=== PATIENT | male | born 1955 | race African-American/Black ===

== ENCOUNTER 2019-09-07 16:48 | Emergency (ER) | payer SELFPAY ==
[2019-09-07 17:28] LABS: ABSOLUTE EOSINOPHILS # (AUTO) 0.4 10^3/uL (0.0-0.6); ABSOLUTE LYMPHOCYTES (AUTO) 1.3 10^3/uL (0.5-4.7); ABSOLUTE MONOCYTES (AUTO) 0.5 10^3/uL (0.1-1.4); ABSOLUTE NEUT (AUTO) 2.8 10^3/uL (1.7-8.2); BASOPHILS % (AUTO) 0.6 % (0-2); EOSINOPHILS % (AUTO) 8.6 % (0-6); HEMATOCRIT 41.7 % (37.9-51.0); HEMOGLOBIN 14.2 g/dL (13.5-17.0); LYMPHOCYTES % (AUTO) 25.3 % (13-45); MEAN CORPUSCULAR HEMOGLOBIN 32.8 pg (27.0-33.4); MEAN CORPUSCULAR VOLUME 97 fl (80-97); MONOCYTES % (AUTO) 9.4 % (3-13); PLATELET COUNT 203 10^3/uL (150-450); RED BLOOD COUNT 4.32 10^6/uL (4.35-5.55); RED CELL DISTRIBUTION WIDTH 14.6 % (11.5-14.0); SEGMENTED NEUTROPHILS % (AUTO) 56.1 % (42-78); TOTAL CELLS COUNTED % (AUTO) 100 %
[2019-09-07] MEDS ORDERED: ASPIRIN 81 MG TABLET, CHEWABLE PO ONE (17:42)
--- NOTE | 2019-09-07 17:46 | ER Document Report ---
ED General - General Chief Complaint: Chest Pain Stated Complaint: CHEST PAIN Time Seen by Provider: 09/07/19 17:29 TRAVEL OUTSIDE OF THE [place] IN LAST 30 DAYS: No - HPI Notes: Patient is a very pleasant 59-year-old male who presents to the emergency department for evaluation of chest pain. He states is been intermittent over the last 3 weeks. He really cannot describe it for me in great detail. He s tates that it feels like a knot. He states he has had a nearly daily for the last 3 weeks. It seems to last 30 seconds to 2 or 3 minutes. He states he had one episode when he got up in the middle the night. He states he had another episode while he was drinking, and he felt like he was choking. He denies any radiation of this pain, he points to the substernal area. He denies any associated shortness of breath, nausea, diaphoresis, near syncope. - Related Data Allergies/Adverse Reactions: No Known Allergies Allergy (Unverified 04/01/15 10:44) Home Medications: Unknown [id number] allergy medication Past Medical History - General Information source: Patient - Social History Smoking Status: Current Every Day Smoker Frequency of alcohol use: Occasional Drug Abuse: None Family History: Reviewed & Not Pertinent, CAD, Other - Brain aneurysm in sister Patient has suicidal ideation: No Patient has homicidal ideation: No Review of Systems - Review of Systems Constitutional: No symptoms reported EENT: No symptoms reported Cardiovascular: See HPI Respiratory: No symptoms reported Gastrointestinal: No symptoms reported Genitourinary: No symptoms reported Musculoskeletal: No symptoms reported Neurological/Psychological: No symptoms reported Physical Exam - Vital signs Vitals: Resp Pulse Ox 20 98 09/07/19 17:06 09/07/19 17:06 - Notes Notes: Vital signs reviewed, please refer to chart. Head is normocephalic, atraumatic. Pupils equal round, reactive to light. Neck is supple without meningismus. Heart is regular rate and rhythm. Lungs are clear to auscultation bilaterally. Abdomen is soft, nontender, normoactive bowel sounds throughout. Extremities without cyanosis, clubbing. Posterior calves are nontender. Peripheral pulses are equal. Skin is warm and dry. Patient is awake, alert, oriented x3. Cranial nerves II - XII are grossly intact without focal neurological deficits. Strength is plus 5 out of 5 bilateral upper and lower extremities. Sensation is intact. Reflexes symmetrical. Intact [id number], rapid alternating movements, [id number]. Course - Re-evaluation Re-evalutation: 09/07/19 17:48 Patient presents emergency department for evaluation of chest pain. It certainly does not seem typical of anginal pain. I am concerned as the patient is moderately hypertensive, and he does not have a regular primary care. He is given aspirin. His symptoms certainly sound as if they may be GI related as well. In regards to this sensation, I was concerned about the possibility of dysphagia. He has an entirely normal neurological exam, so I do not believe this is a central dysphagia of any sort. Cardiac enzymes, regular lab work, EKG, chest x-ray ordered. Patient is given aspirin. We will continue to mo marielor. He is currently pain-free. 09/07/19 22:05 Patient did not have any recurrence of his chest pain while he was here. His laboratory investigations were unremarkable, he had 2 undetectable troponins. His blood pressure remained elevated throughout the course of his stay. We had a long conversation in regards to blood pressure control, risk factor modification, and the need for him to follow-up with primary care. He voiced understanding to this. We also discussed the fact that he needs to quit smoking, and he voiced understanding to that as well. I did go ahead and start him on hydrochlorothiazide. He was given a dose of that here. I will write him a prescription for same. He is to follow-up at [facility] or [facility]. He is to return to the ED with worsening or new concerning symptoms of any sort. - Vital Signs Vital signs: Temp Pulse Resp BP Pulse Ox 97.5 F 21 H 182/108 H 99 09/07/19 18:00 09/07/19 20:00 09/07/19 20:00 09/07/19 20:00 - Laboratory Result Diagrams: 09/07/19 17:10 09/07/19 17:10 Laboratory results interpreted by me: 09/07/19 09/07/19 17:10 17:10 RBC 4.32 L RDW 14.6 H Eos % (Auto) 8.6 H Chloride 109 H Creatine Kinase 187 H - Diagnostic Test Radiology reviewed: Reports reviewed Radiology results interpreted by me: 09/07/19 22:06 Chest X-Ray 09/07/19 17:10 IMPRESSION: NO ACUTE RADIOGRAPHIC FINDING IN THE CHEST. - EKG Interpretation by Me Additional EKG results interpreted by me: 09/07/19 17:49 Sinus mechanism with a rate of 82 bpm. Normal axis and intervals. Findings consistent with LVH. Nonspecific ST changes, but no acute changes concerning for ischemia or infarction. No old studies available for comparison. Discharge - Discharge Clinical Impression: Chest pain Qualifiers: Chest pain type: unspecified Qualified Code(s): R07.9 - Chest pain, unspecified Hypertension Qualifiers: Hypertension type: essential hypertension Qualified Code(s): I10 - Essential (primary) hypertension Condition: Stable Disposition: HOME, SELF-CARE Instructions: Chest Pain of Unclear Cause ([facility]), Reflux Disease (GERD) ([facility]), High Blood Pressure, Requiring Treatment ([facility]) Additional Instructions: Start taking hydrochlorothiazide as directed, starting tomorrow. Follow-up with primary care at either [facility] or [facility] for further care. If you develop increased chest pain, or worsening or new concerning symptoms of any sort, please return immediately to the emergency department for evaluation. Forms: Elevated Blood Pressure, Smoking Cessation Education
[2019-09-07 17:58] LABS: ALBUMIN 3.9 g/dL (3.5-5.0); ALKALINE PHOSPHATASE 87 U/L (38-126); ANION GAP 8 (5-19); ASPARTATE AMINO TRANSFERASE 26 U/L (17-59); BILIRUBIN,DIRECT 0.1 mg/dL (0.0-0.4); BILIRUBIN,TOTAL 0.2 mg/dL (0.2-1.3); BLOOD UREA NITROGEN 13 mg/dL (7-20); CALCIUM 9.3 mg/dL (8.4-10.2); CARBON DIOXIDE 27 mmol/L (22-30); CHLORIDE 109 mmol/L (98-107); CREATINE KINASE 187 U/L (55-170); GLUCOSE 86 mg/dL (75-110); POTASSIUM 4.5 mmol/L (3.6-5.0); TOTAL PROTEIN 7.1 g/dL (6.3-8.2)
[2019-09-07 18:00] LABS: CREATINE KINASE MB 0.51 ng/mL (<4.55)
[2019-09-07 18:01] LABS: TROPONIN I < 0.012 ng/mL
--- NOTE | 2019-09-07 18:49 | RADIOLOGY REPORT (SQ) ---
EXAM DESCRIPTION: CHEST SINGLE VIEW COMPLETED DATE/TIME: 09/07/2019 6:00 pm REASON FOR STUDY: chest pain COMPARISON: None. EXAM PARAMETERS: NUMBER OF VIEWS: One view. TECHNIQUE: Single frontal radiographic view of the chest acquired. RADIATION DOSE: NA LIMITATIONS: None. FINDINGS: LUNGS AND PLEURA: No opacities, masses or pneumothorax. No pleural effusion. MEDIASTINUM AND HILAR STRUCTURES: No masses. Contour normal. HEART AND VASCULAR STRUCTURES: Heart normal in size. Normal vasculature. BONES: No acute findings. HARDWARE: None in the chest. OTHER: No other significant finding. IMPRESSION: NO ACUTE RADIOGRAPHIC FINDING IN THE CHEST. TECHNICAL DOCUMENTATION: JOB ID: [id number] [employer]- All Rights Reserved Reading location - IP/workstation name: [email or web address]
[2019-09-07 20:51] VITALS: BP 182/108
[2019-09-07] MEDS ORDERED: HYDROCHLOROTHIAZIDE 25 MG TABLET PO ONE (21:01)
--- NOTE | 2019-09-08 01:15 | EKG REPORT ---
SEVERITY:- ABNORMAL ECG - SINUS RHYTHM PROBABLE LEFT ATRIAL ABNORMALITY PROBABLE LEFT VENTRICULAR HYPERTROPHY : Confirmed by: Mickie Angelo MD 08-Sep-2019 01:13:52
== END 2019-09-07 22:29 | disposition home or self-care (01) ==
LOC: ER 16:48
DX: R07.9 Chest pain, unspecified (principal); I10 Essential (primary) hypertension; F17.200 Nicotine dependence, unspecified, uncomplicated
CPT/HCPCS: 36415; 71045; 80053; 82550; 82553; 84484; 85025; 93005; 93010; 99285